=== PATIENT | female | born 1985 | race Two or more races ===

== ENCOUNTER 2020-09-10 19:46 | Emergency (ER) | payer SELFPAY ==
[~2020-09-10] VITALS: Ht 149.9 cm; Wt 119.7 kg
[2020-09-10] MEDS ORDERED: LORazepam 1MG TABLET PO ONE (20:30)
[2020-09-10] MEDS ORDERED: KETOROLAC 30 MG/1 ML IM ONE (20:30)
[2020-09-10] MEDS ORDERED: KETOROLAC 30 MG/1 ML ONE (20:38)
[2020-09-10] MEDS ORDERED: LORazepam 1MG TABLET ONE (20:38)
[2020-09-10 21:00] VITALS: BP 111/82
[2020-09-10 21:04] LABS: BASOPHILS % (AUTO) 1 % (0-1); EOSINOPHILS % (AUTO) 1 % (1-7); LYMPHOCYTES % (AUTO) 16 % (22-44); MEAN CORPUSCULAR HEMOGLOBIN 28.8 pg (27.0-34.8); MEAN CORPUSCULAR HGB CONC 32.8 g/dL (32.4-35.8); MEAN PLATELET VOLUME 7.6 fL (7.4-10.4); MONOCYTES % (AUTO) 5 % (2-9); NEUTROPHILS % (AUTO) 76 % (42-75); PLATELET COUNT 414 x10^3/uL (130-400); RED BLOOD COUNT 4.83 x10^6/uL (3.82-5.3); RED CELL DISTRIBUTION WIDTH 13.2 % (9.6-15.2)
[2020-09-10 21:06] LABS: MD NO
[2020-09-10 21:11] LABS: ALANINE AMINOTRANSFERASE 27 U/L (12-78); ALBUMIN 3.5 g/dL (3.4-5.0); ANION GAP 7 mmol/L (5-15); CALCIUM 9.1 mg/dL (8.5-10.1); CHLORIDE 103 mmol/L (98-107); CREATININE 0.89 mg/dL (0.55-1.02)
[2020-09-10 21:15] LABS: ALKALINE PHOSPHATASE 62 U/L (45-117); BILIRUBIN,TOTAL 0.2 mg/dL (0.2-1.0); TROPONIN I < 0.015 ng/mL (0.000-0.045)
== END 2020-09-10 21:34 | disposition home or self-care (01) ==
LOC: ED 20:18
DX: E11.65 Type 2 diabetes mellitus with hyperglycemia (principal); R07.89 Other chest pain; R00.0 Tachycardia, unspecified; R00.2 Palpitations; K21.9 Gastro-esophageal reflux disease without esophagitis; E11.9 Type 2 diabetes mellitus without complications; R11.2 Nausea with vomiting, unspecified; Z79.899 Other long term (current) drug therapy; Z87.891 Personal history of nicotine dependence
CPT/HCPCS: 36415; 71045; 80053; 84484; 85025; 85379; 93005; 96372; 99285; J1885